=== PATIENT | female | born 1930 | race Two or more races ===

== ENCOUNTER 2017-02-12 14:02 | Inpatient (IN) | payer MEDICARE, MEDICAID ==
[2017-02-12] VITALS (12 sets, daily range): BP systolic 79–117; BP diastolic 33–64
[~2017-02-12] VITALS: Ht 157.5 cm; Wt 77.1 kg
--- NOTE | 2017-02-12 14:20 | Emergency Room Report ---
History of Present Illness General Chief Complaint: Syncope Source: Patient, Medical Record, EMS Present Illness HPI Patient presents by paramedics for report of syncopal episode Patient herself does not recall the episode She reports that she was feeling some pain to the back of the head was feeling lightheaded was found to be hypotensive Patient reports being given water with salt And as it was not helping paramedics were summoned Paramedics report that the patient had a full syncopal episode, slumping in her chair and unresponsive Initial blood pressure being 60/40 At this time patient denies any chest pain or shortness of breath Allergies: Coded Allergies: No Known Allergies (Unverified , 02/12/17) Patient History Past Medical History: see triage record Pertinent Family History: none Last Menstrual Period: na Reviewed Nursing Documentation: PMH: Agreed, PSxH: Agreed Nursing Documentation-PMH Past Medical History: No History, Except For Hx Cardiac Problems: Yes - murmur, syncope, high cholesterol Hx Hypertension: Yes Hx COPD: Yes Hx Gastrointestinal Problems: Yes - cholesectomy History Of Psychiatric Problem: Yes - anxiety, dementia, depression Review of Systems All Other Systems: negative except mentioned in HPI Physical Exam Vital Signs Date Time Temp Pulse Resp B/P Pulse Ox O2 Delivery O2 Flow Rate FiO2 02/12/17 14:02 97.3 64 18 81/44 98 Room Air Sp02 EP Interpretation: reviewed, normal General Appearance: no apparent distress Head: normocephalic, atraumatic Eyes: bilateral eye EOMI, bilateral eye PERRL ENT: hearing grossly normal, TMs + canals normal, uvula midline, dry mucus membranes Neck: full range of motion, supple, no meningismus, no bony tend Respiratory: lungs clear, normal breath sounds, no rhonchi, no respiratory distress, no retraction, no accessory muscle use Cardiovascular #1: normal peripheral pulses, regular rate, rhythm, no gallop, no JVD, no murmur Gastrointestinal: normal bowel sounds, non tender, soft, no mass, no organomegaly, non-distended, no guarding, no hernia, no pulsatile mass, no rebound Genitourinary: no CVA tenderness Musculoskeletal: other - no obvious focal deficit Neurologic: responsive, emergency nurse III-XII nml as tested, motor strength/tone normal, sensory intact Psychiatric: mood/affect normal Skin: other - Dependence-appearing edema in both lower extremities Lymphatic: normal inspection, no adenopathy Medical Decision Making Diagnostic Impression: Primary Impression: Syncope Additional Impression: Hypokalemia ER Course Patient is a fairly complex patient with multiple differential to consideration including but not limited to cardiac cardiopulmonary and vascular emergencies Patient's blood work reveals mild anemia there is also evidence of hypokalemia Patient did report taking increased diuretics Patient further hydrated pressure at this time improved the patient required admission for further care Labs Test 02/12/17 15:30 02/12/17 16:00 White Blood Count 9.0 K/UL (4.8-10.8) Red Blood Count 3.68 M/UL (4.20-5.40) Hemoglobin 10.7 G/DL (12.0-16.0) Hematocrit 31.1 % (37.0-47.0) Mean Corpuscular Volume 85 FL (80-99) Mean Corpuscular Hemoglobin 29.1 PG (27.0-31.0) Mean Corpuscular Hemoglobin Concent 34.5 G/DL (32.0-36.0) Red Cell Distribution Width 12.1 % (11.6-14.8) Platelet Count 143 K/UL (150-450) Mean Platelet Volume 7.1 FL (6.5-10.1) Neutrophils (%) (Auto) 77.5 % (45.0-75.0) Lymphocytes (%) (Auto) 16.1 % (20.0-45.0) Monocytes (%) (Auto) 6.1 % (1.0-10.0) Eosinophils (%) (Auto) 0.1 % (0.0-3.0) Basophils (%) (Auto) 0.2 % (0.0-2.0) Prothrombin Time 10.1 SEC (9.30-11.50) Prothromb Time International Ratio 1.0 (0.9-1.1) Activated Partial Thromboplast Time 26 SEC (23-33) Sodium Level 137 mEQ/L (135-145) Potassium Level 3.0 mEQ/L (3.4-4.9) Chloride Level 96 mEQ/L (98-107) Carbon Dioxide Level 26 mEQ/L (20-30) Anion Gap 15 (5-15) Blood Urea Nitrogen 32 mg/dL (7-23) Creatinine 1.4 mg/dL (0.5-0.9) Estimat Glomerular Filtration Rate mL/min (>60) Glucose Level 122 mg/dL (74-106) Lactic Acid Level 1.40 mmol/L (0.66-2.22) Calcium Level 8.3 mg/dL (8.6-10.2) Total Bilirubin 0.5 mg/dL (0.0-1.2) Aspartate Amino Transf (AST/SGOT) 11 U/L (5-40) Alanine Aminotransferase (ALT/SGPT) 9 U/L (3-33) Alkaline Phosphatase 64 U/L (35-104) Total Creatine Kinase 50 U/L (26-140) Creatine Kinase MB < 1.5 ng/mL (< 3.8) Creatine Kinase MB Relative Index Troponin I < 0.30 ng/mL (<=0.30) Total Protein 6.2 g/dL (6.6-8.7) Albumin 3.6 g/dL (3.5-5.2) Globulin 2.6 g/dL Albumin/Globulin Ratio 1.3 (1.0-2.7) Urine Color Pale yellow Urine Appearance Clear Urine pH 5 (4.5-8.0) Urine Specific [place] 1.005 (1.005-1.035) Urine Protein Negative (NEGATIVE) Urine Glucose (UA) Negative (NEGATIVE) Urine Ketones Negative (NEGATIVE) Urine Occult Blood Negative (NEGATIVE) Urine Nitrite Negative (NEGATIVE) Urine Bilirubin Negative (NEGATIVE) Urine Urobilinogen Normal MG/DL (0.0-1.0) Urine Leukocyte Esterase 1+ (NEGATIVE) Urine RBC 0-2 /HPF (0 - 2) Urine WBC 0-2 /HPF (0 - 2) Urine Squamous Epithelial Cells Occasional /LPF Urine Bacteria Many /HPF (NONE) EKG Diagnostic Results Rate: normal Rhythm: NSR ST Segments: other Rhythm Strip Diag. Results EP Interpretation: yes Rate: 87 Rhythm: NSR, no PVC's, no ectopy Chest X-Ray Diagnostic Results EP Interpretation: Yes Findings: no consolidation, no effusion, no pneumothorax Number of Views: 1 Last Vital Signs Date Time Temp Pulse Resp B/P Pulse Ox O2 Delivery O2 Flow Rate FiO2 02/12/17 14:02 97.3 64 18 81/44 98 Room Air Status: improved Disposition: ADMITTED INPATIENT Condition: Serious BAIRON MEDRANO D.O. Feb 12, 2017 14:20
--- NOTE | 2017-02-12 14:55 | Diagnostic Imaging Report ---
Indication: Chest Pain Comparison: None A single view chest radiograph was obtained. Findings: No definite infiltrate or pulmonary vascular congestion identified. The heart is borderline enlarged. The aorta is mildly enlarged consistent with atherosclerotic vascular disease. The bones are osteopenic. Impression: No acute disease
[2017-02-12 15:53] LABS: BASOPHILS % (AUTO) 0.2 % (0.0-2.0); EOSINOPHILS % (AUTO) 0.1 % (0.0-3.0); LYMPHOCYTES % (AUTO) 16.1 % (20.0-45.0); MEAN CORPUSCULAR HEMOGLOBIN 29.1 PG (27.0-31.0); MEAN CORPUSCULAR HGB CONC 34.5 G/DL (32.0-36.0); MEAN CORPUSCULAR VOLUME 85 FL (80-99); MEAN PLATELET VOLUME 7.1 FL (6.5-10.1); MONOCYTES % (AUTO) 6.1 % (1.0-10.0); NEUTROPHILS % (AUTO) 77.5 % (45.0-75.0); PLATELET COUNT 143 K/UL (150-450); RED BLOOD COUNT 3.68 M/UL (4.20-5.40); RED CELL DISTRIBUTION WIDTH 12.1 % (11.6-14.8)
[2017-02-12 16:07] LABS: PROTHROMBIN TIME 10.1 SEC (9.30-11.50)
[2017-02-12 16:11] LABS: TROPONIN I < 0.30 ng/mL (<=0.30)
[2017-02-12 16:15] LABS: ALANINE AMINOTRANSFERASE 9 U/L (3-33); ALBUMIN/GLOBULIN RATIO 1.3 (1.0-2.7); ANION GAP 15 (5-15); ASPARTATE AMINO TRANSFERASE 11 U/L (5-40); CALCIUM 8.3 mg/dL (8.6-10.2); CARBON DIOXIDE 26 mEQ/L (20-30); CHLORIDE 96 mEQ/L (98-107); CREATININE 1.4 mg/dL (0.5-0.9); HEMOLYSIS 0; SODIUM 137 mEQ/L (135-145); TOTAL PROTEIN 6.2 g/dL (6.6-8.7)
[2017-02-12] MEDS ORDERED: KLONOPIN0.5 MG ORAL (16:15)
[2017-02-12] MEDS ORDERED: Nitroglycerin Subl 0.4mg tab (Bottle Of 25) SL PRN (16:15)
[2017-02-12] MEDS ORDERED: EVISTA60 MG ORAL (16:15)
[2017-02-12] MEDS ORDERED: SINGULAIR10 MG ORAL (16:15)
[2017-02-12] MEDS ORDERED: DuoNeb 0.5-3(2.5)mg/3ml neb HHN PRN (16:15)
[2017-02-12] MEDS ORDERED: NEXIUM40 MG ORAL (16:15)
[2017-02-12] MEDS ORDERED: CYMBALTA60 MG ORAL (16:15)
[2017-02-12] MEDS ORDERED: Morphine Sulfate 2mg/ml Inj IVP PRN (16:15)
[2017-02-12] MEDS ORDERED: LORazepam Inj 2mg/ml 1ml IV PRN (16:15)
[2017-02-12] MEDS ORDERED: SIMVASTATIN40 MG ORAL (16:15)
[2017-02-12] MEDS ORDERED: AMITIZA24 MCG ORAL (16:15)
[2017-02-12] MEDS ORDERED: Miralax 17gm pkt ORAL PRN (16:15)
[2017-02-12] MEDS ORDERED: VITAMIN D1000 UNI1 ORAL (16:15)
[2017-02-12] MEDS ORDERED: LASIX40 MG ORAL (16:15)
[2017-02-12] MEDS ORDERED: CELEBREX200 MG ORAL (16:15)
[2017-02-12] MEDS ORDERED: BENICAR40 MG ORAL (16:15)
[2017-02-12] MEDS ORDERED: PRAMIPEXOLE D0.25 MG ORAL (16:15)
[2017-02-12] MEDS ORDERED: FOLIC ACID1 MG ORAL (16:15)
[2017-02-12] MEDS ORDERED: OMEGA-31000 M1 PO (16:15)
[2017-02-12] MEDS ORDERED: Mylanta II UD 30ml ORAL PRN (16:15)
[2017-02-12] MEDS ORDERED: BYSTOLIC10 MG ORAL (16:15)
[2017-02-12] MEDS ORDERED: ZAROXOLYN2.5 MG ORAL (16:17)
[2017-02-12] MEDS ORDERED: KLOR-CON 88 MEQ ORAL (16:17)
[2017-02-12] MEDS ORDERED: LUMIGAN2.5 ML BOTH EYES (16:18)
[2017-02-12 16:22] LABS: APPEARANCE,URINE CLEAR; KETONES,URINE NEGATIVE (NEGATIVE); LEUKOCYTE ESTERASE ,URINE 1+ (NEGATIVE); NITRITE,URINE NEGATIVE (NEGATIVE); PH,URINE 5 (4.5-8.0); PROTEIN,URINE NEGATIVE (NEGATIVE); UROBILINOGEN,URINE NORMAL MG/DL (0.0-1.0)
[2017-02-12 16:25] LABS: CKMB < 1.5 ng/mL (< 3.8)
[2017-02-12 16:33] LABS: BACTERIA,URINE MANY /HPF; RBC,URINE 0-2 /HPF (0 - 2); SQUAMOUS EPITHELIAL CELL,UR OCCASIONAL /LPF (NONE/OCC); WBC,URINE 0-2 /HPF (0 - 2)
[2017-02-12] MEDS: D5NS 1,000 ML IV SCH (17:29)
[2017-02-12] MEDS: Heparin 5000 units/ml inj SUBQ SCH (21:00)
[2017-02-13] VITALS: BP 100/57
[2017-02-13 04:00] VITALS: BP 94/50
[2017-02-13] MEDS: D5NS 1,000 ML IV SCH ×3 (06:08→17:20)
[2017-02-13 08:00] VITALS: BP 108/61
--- NOTE | 2017-02-13 08:14 | Cardiology Progress Note ---
Assessment/Plan Assessment/Plan [id number] syncope hypotesnion possibel dehydrattion htn hs renal insuf anemia OA likely related to over diuresis and antihypertensive will have non contrast ct of the chest to r/o aortic root is enlargement orthostatic vital echo iv fluid labs ekg this am Objective Last 24 Hour Vital Signs Date Time Temp Pulse Resp B/P Pulse Ox O2 Delivery O2 Flow Rate FiO2 02/13/17 04:00 58 02/13/17 04:00 98.2 67 18 94/50 98 Room Air 02/13/17 00:00 98.2 66 18 100/57 98 Room Air 02/13/17 00:00 68 02/12/17 20:00 97.5 57 18 103/57 98 Room Air 02/12/17 20:00 75 02/12/17 17:38 96.9 64 17 117/64 98 Room Air 64 64 02/12/17 17:11 97.6 67 18 101/45 98 Room Air 65 02/12/17 16:30 67 18 101/45 98 Room Air 02/12/17 16:16 97.6 65 18 100/45 97 Room Air 02/12/17 15:45 64 18 93/44 95 Room Air 02/12/17 15:30 66 16 93/43 95 Room Air 02/12/17 15:15 60 18 89/42 95 Room Air 02/12/17 15:00 57 18 89/35 95 Room Air 02/12/17 14:55 59 16 84/39 95 Room Air 02/12/17 14:45 57 18 81/33 96 Room Air 02/12/17 14:30 57 16 79/33 95 Room Air 02/12/17 14:10 59 16 91/51 97 Room Air 02/12/17 14:02 97.3 64 18 81/44 98 Room Air Intake and Output 02/12/17 02/13/17 19:00 07:00 Intake Total 2375 ml 1140 ml Output Total 300 ml Balance 2075 ml 1140 ml Intake Oral 0 ml 240 ml IV Total 2375 ml 900 ml Output Urine Total 300 ml Laboratory Tests Test 02/12/17 15:30 02/12/17 16:00 White Blood Count 9.0 K/UL (4.8-10.8) Red Blood Count 3.68 M/UL (4.20-5.40) L Hemoglobin 10.7 G/DL (12.0-16.0) L Hematocrit 31.1 % (37.0-47.0) L Mean Corpuscular Volume 85 FL (80-99) Mean Corpuscular Hemoglobin 29.1 PG (27.0-31.0) Mean Corpuscular Hemoglobin Concent 34.5 G/DL (32.0-36.0) Red Cell Distribution Width 12.1 % (11.6-14.8) Platelet Count 143 K/UL (150-450) L Mean Platelet Volume 7.1 FL (6.5-10.1) Neutrophils (%) (Auto) 77.5 % (45.0-75.0) H Lymphocytes (%) (Auto) 16.1 % (20.0-45.0) L Monocytes (%) (Auto) 6.1 % (1.0-10.0) Eosinophils (%) (Auto) 0.1 % (0.0-3.0) Basophils (%) (Auto) 0.2 % (0.0-2.0) Prothrombin Time 10.1 SEC (9.30-11.50) Prothromb Time International Ratio 1.0 (0.9-1.1) Activated Partial Thromboplast Time 26 SEC (23-33) Sodium Level 137 mEQ/L (135-145) Potassium Level 3.0 mEQ/L (3.4-4.9) L Chloride Level 96 mEQ/L (98-107) L Carbon Dioxide Level 26 mEQ/L (20-30) Anion Gap 15 (5-15) Blood Urea Nitrogen 32 mg/dL (7-23) H Creatinine 1.4 mg/dL (0.5-0.9) H Estimat Glomerular Filtration Rate mL/min (>60) Glucose Level 122 mg/dL (74-106) H Lactic Acid Level 1.40 mmol/L (0.66-2.22) Calcium Level 8.3 mg/dL (8.6-10.2) L Total Bilirubin 0.5 mg/dL (0.0-1.2) Aspartate Amino Transf (AST/SGOT) 11 U/L (5-40) Alanine Aminotransferase (ALT/SGPT) 9 U/L (3-33) Alkaline Phosphatase 64 U/L (35-104) Total Creatine Kinase 50 U/L (26-140) Creatine Kinase MB < 1.5 ng/mL (< 3.8) Creatine Kinase MB Relative Index Troponin I < 0.30 ng/mL (<=0.30) Total Protein 6.2 g/dL (6.6-8.7) L Albumin 3.6 g/dL (3.5-5.2) Globulin 2.6 g/dL Albumin/Globulin Ratio 1.3 (1.0-2.7) Urine Color Pale yellow Urine Appearance Clear Urine pH 5 (4.5-8.0) Urine Specific [place] 1.005 (1.005-1.035) Urine Protein Negative (NEGATIVE) Urine Glucose (UA) Negative (NEGATIVE) Urine Ketones Negative (NEGATIVE) Urine Occult Blood Negative (NEGATIVE) Urine Nitrite Negative (NEGATIVE) Urine Bilirubin Negative (NEGATIVE) Urine Urobilinogen Normal MG/DL (0.0-1.0) Urine Leukocyte Esterase 1+ (NEGATIVE) H Urine RBC 0-2 /HPF (0 - 2) Urine WBC 0-2 /HPF (0 - 2) Urine Squamous Epithelial Cells Occasional /LPF Urine Bacteria Many /HPF (NONE) H Microbiology Date/Time Source Procedure Growth Status 02/12/17 16:00 Urine,Clean Catch Urine Culture - Preliminary Resulted ELVIN RIVERS 6, 2017 08:14
[2017-02-13] MEDS: Heparin 5000 units/ml inj SUBQ SCH ×2 (09:22→21:00)
[2017-02-13 10:07] LABS: BASOPHILS % (AUTO) 0.2 % (0.0-2.0); EOSINOPHILS % (AUTO) 0.1 % (0.0-3.0); LYMPHOCYTES % (AUTO) 22.4 % (20.0-45.0); MEAN CORPUSCULAR HEMOGLOBIN 26.8 PG (27.0-31.0); MEAN CORPUSCULAR HGB CONC 31.9 G/DL (32.0-36.0); MEAN CORPUSCULAR VOLUME 84 FL (80-99); MEAN PLATELET VOLUME 7.5 FL (6.5-10.1); MONOCYTES % (AUTO) 6.6 % (1.0-10.0); NEUTROPHILS % (AUTO) 70.6 % (45.0-75.0); PLATELET COUNT 178 K/UL (150-450); RED BLOOD COUNT 4.16 M/UL (4.20-5.40); WHITE BLOOD COUNT 7.3 K/UL (4.8-10.8)
[2017-02-13 10:41] LABS: ALANINE AMINOTRANSFERASE 9 U/L (3-33); ALBUMIN/GLOBULIN RATIO 1.1 (1.0-2.7); ANION GAP 13 (5-15); ASPARTATE AMINO TRANSFERASE 12 U/L (5-40); CALCIUM 8.4 mg/dL (8.6-10.2); CARBON DIOXIDE 28 mEQ/L (20-30); CHLORIDE 102 mEQ/L (98-107); CREATININE 1.1 mg/dL (0.5-0.9); HEMOLYSIS 3; POTASSIUM 3.4 mEQ/L (3.4-4.9); SODIUM 143 mEQ/L (135-145); TOTAL PROTEIN 6.5 g/dL (6.6-8.7)
[2017-02-13 11:18] LABS: TROPONIN I < 0.30 ng/mL (<=0.30)
--- NOTE | 2017-02-13 11:40 | Cardiology Report ---
APPROVED REPORT EXAM: Two-dimensional and M-mode echocardiogram with Doppler and color Doppler. INDICATION LV function Technically difficult study due to poor acoustical windows. Normal left ventricular chamber size, systolic function and wall motion to extent visualized. Left ventricular ejection fraction estimated to be 60 %. Mild to moderate left ventricular hypertrophy. Anterior Echo-free space, may be due to pericardial fat or effusion. All other cardiac chamber sizes are within normal limits. Focal aortic valve sclerosis with adequate cusp excursion. Thickened mitral valve leaflets with normal excursion. Mitral annulus and aortic root calcification. Pulmonic valve not well visualized. Normal tricuspid valve structure. IVC at normal size with physiologic collapse. A color flow and spectral Doppler study was performed and revealed: Mild aortic regurgitation. Mild mitral regurgitation. Mitral inflow indicates normal left ventricular diastolic function. Trace to mild tricuspid regurgitation. Tricuspid systolic velocities suggests peak right ventricular systolic pressure of 30 mmHg.
[2017-02-13 12:00] VITALS: BP 109/56
--- NOTE | 2017-02-13 12:44 | History and Physical ---
History of Present Illness General Date patient seen: Feb 13, 2017 Reason for Hospitalization: Syncope Present Illness HPI 87 year old female with hx of htn, CHF?, peripheral edema, morbid obesity presented by paramedics with CC of syncopal episode She was feeling lightheaded while [facility] and was found to be hypotensive Paramedics report that the patient had a full syncopal episode, slumping in her chair and unresponsive. Initial blood pressure being 60/40 Pt is admitted for extreme low blood pressure. Allergies: Coded Allergies: No Known Allergies (Unverified , 02/12/17) Medication History Scheduled Bimatoprost (Lumigan), 1 DROP BOTH EYES DAILY, (Reported) Celecoxib* (Celebrex*), 200 MG ORAL DAILY, (Reported) Cholecalciferol (Vitamin D3)* (Vitamin D*), 5,000 UNIT ORAL DAILY, (Reported) Clonazepam* (Klonopin*), 0.5 MG ORAL BID, (Reported) Duloxetine Hcl* (Cymbalta*), 60 MG ORAL DAILY, (Reported) Esomeprazole Magnesium (Nexium), 40 MG ORAL DAILY, (Reported) Folic Acid* (Folic Acid*), 1 MG ORAL DAILY, (Reported) Furosemide* (Lasix*), 40 MG ORAL DAILY, (Reported) Lubiprostone (Amitiza*), 24 MCG ORAL EVERY 12 HOURS, (Reported) Metolazone (Metolazone), 2.5 MG ORAL DAILY, (Reported) Montelukast Sodium* (Singulair*), 10 MG ORAL DAILY, (Reported) Nebivolol Hcl (Bystolic*), 10 MG ORAL DAILY, (Reported) Olmesartan Medoxomil (Benicar), 40 MG ORAL DAILY, (Reported) Potassium Chloride (Klor-Con 8), 8 MEQ ORAL DAILY, (Reported) Pramipexole* (Mirapex*), 0.5 MG ORAL BID, (Reported) Raloxifene Hcl* (Evista*), 60 MG ORAL DAILY, (Reported) Simvastatin (Zocor), 40 MG ORAL BEDTIME, (Reported) Miscellaneous Medications [place]-3 Fatty Acids ([place]-3), 1,000 MG PO, (Reported) Patient History Healthcare decision maker N Resuscitation status Full Code Advanced Directive on File Past Medical/Surgical History Past Medical/Surgical History: (1) HTN (hypertension) (2) Obesity (3) Asthma Review of Systems All Other Systems: negative except mentioned in HPI Physical Exam General Appearance: morbidly obese Lines, tubes and drains: peripheral HEENT: normocephalic, atraumatic Neck: non-tender Respiratory/Chest: chest wall non-tender Cardiovascular/Chest: normal peripheral pulses, normal rate Abdomen: normal bowel sounds, non tender Genitourinary/Rectal: normal genital exam Extremities: normal range of motion Skin Exam: normal pigmentation Neurologic: bench inspector II-XII grossly normal Last 24 Hour Vital Signs Date Time Temp Pulse Resp B/P Pulse Ox O2 Delivery O2 Flow Rate FiO2 02/13/17 12:00 96.3 65 18 109/56 94 Room Air 02/13/17 12:00 65 60 68 02/13/17 08:00 97.7 63 19 108/61 95 Room Air 02/13/17 07:51 72 02/13/17 04:00 58 02/13/17 04:00 98.2 67 18 94/50 98 Room Air 02/13/17 00:00 98.2 66 18 100/57 98 Room Air 02/13/17 00:00 68 02/12/17 20:00 97.5 57 18 103/57 98 Room Air 02/12/17 20:00 75 02/12/17 17:38 96.9 64 17 117/64 98 Room Air 64 64 02/12/17 17:11 97.6 67 18 101/45 98 Room Air 65 02/12/17 16:30 67 18 101/45 98 Room Air 02/12/17 16:16 97.6 65 18 100/45 97 Room Air 02/12/17 15:45 64 18 93/44 95 Room Air 02/12/17 15:30 66 16 93/43 95 Room Air 02/12/17 15:15 60 18 89/42 95 Room Air 02/12/17 15:00 57 18 89/35 95 Room Air 02/12/17 14:55 59 16 84/39 95 Room Air 02/12/17 14:45 57 18 81/33 96 Room Air 02/12/17 14:30 57 16 79/33 95 Room Air 02/12/17 14:10 59 16 91/51 97 Room Air 02/12/17 14:02 97.3 64 18 81/44 98 Room Air Intake and Output 02/12/17 02/13/17 19:00 07:00 Intake Total 2375 ml 1140 ml Output Total 300 ml Balance 2075 ml 1140 ml Intake Oral 0 ml 240 ml IV Total 2375 ml 900 ml Output Urine Total 300 ml Laboratory Tests Test 02/12/17 15:30 02/12/17 16:00 02/13/17 09:55 White Blood Count 9.0 K/UL (4.8-10.8) 7.3 K/UL (4.8-10.8) Red Blood Count 3.68 M/UL (4.20-5.40) L 4.16 M/UL (4.20-5.40) L Hemoglobin 10.7 G/DL (12.0-16.0) L 11.1 G/DL (12.0-16.0) L Hematocrit 31.1 % (37.0-47.0) L 35.0 % (37.0-47.0) L Mean Corpuscular Volume 85 FL (80-99) 84 FL (80-99) Mean Corpuscular Hemoglobin 29.1 PG (27.0-31.0) 26.8 PG (27.0-31.0) L Mean Corpuscular Hemoglobin Concent 34.5 G/DL (32.0-36.0) 31.9 G/DL (32.0-36.0) L Red Cell Distribution Width 12.1 % (11.6-14.8) 13.0 % (11.6-14.8) Platelet Count 143 K/UL (150-450) L 178 K/UL (150-450) Mean Platelet Volume 7.1 FL (6.5-10.1) 7.5 FL (6.5-10.1) Neutrophils (%) (Auto) 77.5 % (45.0-75.0) H 70.6 % (45.0-75.0) Lymphocytes (%) (Auto) 16.1 % (20.0-45.0) L 22.4 % (20.0-45.0) Monocytes (%) (Auto) 6.1 % (1.0-10.0) 6.6 % (1.0-10.0) Eosinophils (%) (Auto) 0.1 % (0.0-3.0) 0.1 % (0.0-3.0) Basophils (%) (Auto) 0.2 % (0.0-2.0) 0.2 % (0.0-2.0) Prothrombin Time 10.1 SEC (9.30-11.50) Prothromb Time International Ratio 1.0 (0.9-1.1) Activated Partial Thromboplast Time 26 SEC (23-33) Sodium Level 137 mEQ/L (135-145) 143 mEQ/L (135-145) Potassium Level 3.0 mEQ/L (3.4-4.9) L 3.4 mEQ/L (3.4-4.9) Chloride Level 96 mEQ/L (98-107) L 102 mEQ/L (98-107) Carbon Dioxide Level 26 mEQ/L (20-30) 28 mEQ/L (20-30) Anion Gap 15 (5-15) 13 (5-15) Blood Urea Nitrogen 32 mg/dL (7-23) H 20 mg/dL (7-23) Creatinine 1.4 mg/dL (0.5-0.9) H 1.1 mg/dL (0.5-0.9) H Estimat Glomerular Filtration Rate mL/min (>60) mL/min (>60) Glucose Level 122 mg/dL (74-106) H 129 mg/dL (74-106) H Lactic Acid Level 1.40 mmol/L (0.66-2.22) Calcium Level 8.3 mg/dL (8.6-10.2) L 8.4 mg/dL (8.6-10.2) L Total Bilirubin 0.5 mg/dL (0.0-1.2) 0.4 mg/dL (0.0-1.2) Aspartate Amino Transf (AST/SGOT) 11 U/L (5-40) 12 U/L (5-40) Alanine Aminotransferase (ALT/SGPT) 9 U/L (3-33) 9 U/L (3-33) Alkaline Phosphatase 64 U/L (35-104) 63 U/L (35-104) Total Creatine Kinase 50 U/L (26-140) Creatine Kinase MB < 1.5 ng/mL (< 3.8) Creatine Kinase MB Relative Index Troponin I < 0.30 ng/mL (<=0.30) < 0.30 ng/mL (<=0.30) Total Protein 6.2 g/dL (6.6-8.7) L 6.5 g/dL (6.6-8.7) L Albumin 3.6 g/dL (3.5-5.2) 3.5 g/dL (3.5-5.2) Globulin 2.6 g/dL 3.0 g/dL Albumin/Globulin Ratio 1.3 (1.0-2.7) 1.1 (1.0-2.7) Urine Color Pale yellow Urine Appearance Clear Urine pH 5 (4.5-8.0) Urine Specific [place] 1.005 (1.005-1.035) Urine Protein Negative (NEGATIVE) Urine Glucose (UA) Negative (NEGATIVE) Urine Ketones Negative (NEGATIVE) Urine Occult Blood Negative (NEGATIVE) Urine Nitrite Negative (NEGATIVE) Urine Bilirubin Negative (NEGATIVE) Urine Urobilinogen Normal MG/DL (0.0-1.0) Urine Leukocyte Esterase 1+ (NEGATIVE) H Urine RBC 0-2 /HPF (0 - 2) Urine WBC 0-2 /HPF (0 - 2) Urine Squamous Epithelial Cells Occasional /LPF Urine Bacteria Many /HPF (NONE) H Thyroid Stimulating Hormone (TSH) 3.220 uIU/mL (0.300-4.500) Cortisol Pending Microbiology Date/Time Source Procedure Growth Status 02/12/17 16:00 Urine,Clean Catch Urine Culture - Preliminary Resulted Height (Feet): 5 Height (Inches): 2.00 Weight (Pounds): 170 Medications Current Medications Medications (Trade) Dose Ordered Sig/Shannon Route PRN Reason Start Time Stop Time Status Last Admin Dose Admin Acetaminophen (Tylenol) 650 mg Q4H PRN ORAL fever 02/12/17 16:15 03/14/17 16:14 Al Hydroxide/Mg Hydroxide (Mylanta II) 30 ml Q6H PRN ORAL dyspepsia 02/12/17 16:15 03/14/17 16:14 Albuterol/ Ipratropium (DuoNeb 0.5-3(2.5)mg/3ml) 3 ml Q4H PRN HHN Shortness of Breath 02/12/17 16:15 02/17/17 16:14 Clonidine HCl 0.1 mg 0.1 mg Q4H PRN ORAL For High Blood Pressure 02/12/17 16:15 03/14/17 16:14 Dextrose (Dextrose 50%) STAT PRN IV Hypoglycemia 02/12/17 16:15 03/14/17 16:14 Dextrose/Sodium Chloride (D5ns) 1,000 ml @ 125 mls/hr Q8H IV 02/13/17 09:00 03/15/17 08:59 02/13/17 09:22 Heparin Sodium (Porcine) (Heparin 5000 units/ml) 5,000 units EVERY 12 HOURS SUBQ 02/12/17 21:00 03/14/17 20:59 02/13/17 09:22 Lorazepam (Ativan 2mg/ml 1ml) 0.5 mg Q4H PRN IV For Anxiety 02/12/17 16:15 02/19/17 16:14 Morphine Sulfate (Morphine Sulfate) 1 mg Q4H PRN IVP For Pain 7-10 02/12/17 16:15 02/19/17 16:14 Nitroglycerin (Ntg) 0.4 mg Q5M X 3 DOSES PRN SL Prn Chest Pain 02/12/17 16:15 03/14/17 16:14 Ondansetron HCl (Zofran) 4 mg Q6H PRN IVP Nausea & Vomiting 02/12/17 16:15 03/14/17 16:14 Polyethylene Glycol (Miralax) 17 gm HSPRN PRN ORAL Constipation 02/12/17 16:15 03/14/17 16:14 Temazepam (Restoril) 15 mg HSPRN PRN ORAL Insomnia 02/12/17 16:15 02/19/17 16:14 Assessment/Plan Problem List: (1) Hypovolemic shock ICD Codes: R57.1 - Hypovolemic shock SNOMED: 90112096 (2) ATN (acute tubular necrosis) ICD Codes: N17.0 - Acute kidney failure with tubular necrosis SNOMED: 19457561 (3) History of asthma ICD Codes: Z87.09 - Personal history of other diseases of the respiratory system SNOMED: 148868590 (4) HTN (hypertension) ICD Codes: I10 - Essential (primary) hypertension SNOMED: 46680817 (5) Obesity ICD Codes: E66.9 - Obesity, unspecified SNOMED: 272295412 (6) Hypokalemia ICD Codes: E87.6 - Hypokalemia SNOMED: 66132887 Assessment/Plan IV fluids check echo electrolytes hold diuretics cardiac evaluation LORENZO MEYER Feb 13, 2017 12:44
--- NOTE | 2017-02-13 13:12 | Cardiology Report ---
APPROVED REPORT EKG Measurement Heart [id number] Sinus bradycardia Right bundle branch block Inferior infarct, age undetermined Abnormal ECG
--- NOTE | 2017-02-13 14:02 | Diagnostic Imaging Report ---
APPROVED REPORT CPT Code: 19400 Vascular Symptoms Syncope Doppler Spectral Velocity Analysis RightLeft carotid arteries. ECA - Imaging reveals irregular plaque in the external carotid artery. The Doppler signal indicates the degree of stenosis is minimal (5%) in the external carotid artery. VERTEBRAL - The vertebral artery is patent, without evidence of stenosis or steal. LEFT SIDE: CCA/ECA - Imaging reveals no significant plaque in the common carotid and external carotid arteries. ICA - Imaging reveals irregular plaque in the internal carotid artery. The Doppler signal indicates the degree of stenosis is minimal (5%) in the internal carotid artery. VERTEBRAL - The vertebral artery is patent, without evidence of stenosis or steal.
--- NOTE | 2017-02-13 14:07 | Diagnostic Imaging Report ---
Indication: Chest pain Technique: Continuous helical transaxial imaging of the chest was obtained from the thoracic inlet to the upper abdomen. No intravenous contrast was administered. Coronal 2-D reformats were also obtained. Total Dose length Product (DLP): [address] Dose Index Volume (CTDIvol): 24 mGy Comparison: none Findings: There is a trace amount of pericardial fluid or thickening. Aorta is ectatic and shows mural calcification. Small hiatal hernia is present. A minimal reticular densities are noted at the lung bases with mild cystic changes. Findings likely represent very mild degree of fibrosis. No consolidation identified within the lungs. The visualized part of the upper abdomen is unremarkable. There is kyphosis present. There is narrowing of intervertebral discs and accompanying endplate osteophyte formation. Hypertrophied facet joints also demonstrated. Impression: No acute findings. Minimal basilar lung fibrosis. Trace pericardial effusion versus thickening. Hiatal hernia Atherosclerotic vascular disease. Degenerative changes of the thoracic spine. The CT scanner at [facility] is accredited by the [employer] and the scans are performed using dose optimization techniques as appropriate to a performed exam including Automatic Exposure control.
--- NOTE | 2017-02-13 14:55 | Consultation ---
Consult Note Consult Note asked to eval for renal failure and electrolyte imbalances Patient presents by paramedics for report of syncopal episode Patient herself does not recall the episode She reports that she was feeling some pain to the back of the head was feeling lightheaded was found to be hypotensive Patient reports being given water with salt And as it was not helping paramedics were summoned Paramedics report that the patient had a full syncopal episode, slumping in her chair and unresponsive Initial blood pressure being 60/40 At this time patient denies any chest pain or shortness of breath Last Menstrual Period: na Reviewed Nursing Documentation: PMH: Agreed, PSxH: Agreed Past Medical History: No History, Except For Hx Cardiac Problems: Yes - murmur, syncope, high cholesterol Hx Hypertension: Yes Hx COPD: Yes Hx Gastrointestinal Problems: Yes - cholesectomy History Of Psychiatric Problem: Yes - anxiety, dementia, depression Examined- Data reviewed Assessment/Plan Acute renal failure- -High Cr 1.4 , multifactorial : Celebrex , Lasix , Zaroxylin, low BP HTN Anemia High Cholestrol HypoKalemia Low BP on presentation Asthma Obesity OA Plan: Slow hydrate- Correct electrolytes- Monitor renal parameters- Avoid Nephrotoxics hold celebrex and diuretics Per consultants TRACEY KAPADIA Feb 13, 2017 14:55
[2017-02-13] MEDS ORDERED: BETIMOL5 M2 OP (15:00)
--- NOTE | 2017-02-13 15:00 | Consultation ---
DATE OF CONSULTATION: 02/13/2017 CARDIOLOGY CONSULTATION CONSULTING PHYSICIAN: Matthew Russ M.D. REFERRING PHYSICIAN: Georgi Lugo M.D. REASON FOR REFERRAL: Near syncope. HISTORY OF PRESENT ILLNESS: This is an elderly female, who speaks Samoan and some American as well. The patient was apparently in the adult daycare center. As I understand, talking with the patient, she was doing well at the adult daycare center, but developed the pain in the upper back, neck area and developed a cold sweat. She sat down, was given some fluids and some salt and then paramedics were summoned. Of course, the trip motor operator run sheet is not available to me except the fact the patient indicates she was noted to have low blood pressure to the point that the nursing staff were not able to measure her blood pressure. The trip motor operator however report the patient apparently had syncopal episodes her chair and became unresponsive with initial blood pressure of 60/40 according to the emergency room physician's note. The patient was subsequently brought to the emergency room here at [facility]. Initial blood pressure here 81/44, and the patient received some fluids and was evaluated, admitted to the hospital for further care. This consultation was subsequently requested. The patient herself denies losing consciousness, but as mentioned different story according to the emergency room physician. Does not have any pain or pressure. There is no PND or orthopnea. She uses one pillow at night. Occasionally has dizziness on standing and occasionally has palpitation, but none yesterday. She recalls that she has not been taking her Benicar for the past, reports her blood pressure has been in the 130s. She does not take the Benicar unless the blood pressure is more than 150. Her blood pressure in the past week has been in 130s or so, she does admit to taking Bystolic twice a day. Her chart indicates Bystolic should be once a day. She takes 10 mg of Bystolic in the morning and 10 mg at night. PAST MEDICAL HISTORY: Positive for history of senile dementia back in 2010, bronchitis, depression, hyperlipidemia, Addison's cyst, vitamin D deficiency, systolic murmur, glaucoma, osteoporosis, cholecystectomy, hypertension, vertigo, history of syncope, knee pain, meniscal tear, anxiety, osteopenia, constipation, COPD, tremor. MEDICATIONS: According to the staff notes at the facility include Bystolic 10 mg daily, simvastatin 40 mg at nighttime, pramipexole 0.5 mg twice a week, Cymbalta ER 60 mg daily, Benicar 40 mg, 60 mg daily, Namenda 10 mg nightly, Lasix 40 mg in the morning, folic acid 1 mg daily, Singular 10 mg daily, clonidine, clonazepam 0.5 mg twice a day as needed for anxiety, Nexium 40 mg, vitamin C 5000, omega-3 twice a day, Lumigan eye drops, 2.5 mg on a daily basis, potassium on daily basis, Celebrex 200 mg daily, 24 mcg twice a day, Colace suppository, vitamin B12 500 mcg on a daily basis. ALLERGIES: She states she is not allergic to any medications. SOCIAL HISTORY: She does not smoke. Does not drink. She lives at home. REVIEW OF SYSTEMS: Gastrointestinal: Appears to be negative. Genitourinary: Negative. Pulmonary: She has history of asthma. She occasionally . Constitutional: Denies any fevers, chills or night sweats. Neurologic: She denies. PHYSICAL EXAMINATION: GENERAL: Shows to be elderly obese female, in no respiratory distress. HEENT: Unremarkable. NECK: Supple. No jugular venous distention. No bruits noted. LUNGS: Clear to auscultation and percussion. CARDIAC: S1 is normal. S2 is normal. Regular rate and rhythm. Systolic ejection murmur. No . EXTREMITIES: There is no clubbing, cyanosis, or edema. NEUROLOGICAL: She is awake, alert, responsive, and in no apparent distress. LABORATORY AND DIAGNOSTIC DATA: Laboratory values, white count 9, hemoglobin 10.7, and platelet count of 143,000. Sodium 137, potassium 3, chloride 96, bicarbonate 26, BUN of 32, creatinine 1.4, and a glucose of 222. Lactic acid of 1.4. Liver function tests are normal. Troponin less than 0.3. Coags, INR 1.0 and PTT of 26. Urinalysis is fairly unremarkable, although many bacteria was noted. The imaging has been performed in the emergency room that showed no acute disease on the chest x-ray. Her EKG shows sinus bradycardia at the rate of 58, right bundle-branch conduction defect with some nonspecific T-wave changes being noted on this EKG. Similar to the EKG that was performed by the paramedics. Her telemetry data overnight showed EKG sinus rhythm and sinus bradycardia. No AFB and no pauses, only significant degree noted on any of the EKGs. ASSESSMENT AND PLAN: 1. Syncope with episodes of upper back. 2. Hypotension. 3. History of hypertension. 4. Dementia. 5. History of osteoarthritis. 6. Renal insufficiency. 7. Anemia. 8. Osteopenia. PLAN: Dr. Lugo, this patient was seen in cardiac consultation. The patient has no signs or symptoms of coronary syndrome, no congestive heart failure. She had documented blood pressure according to the emergency room physician by the paramedics 60/48, at least here in the hospital, she has had blood pressure documented in the emergency room in the 80s. Her blood pressure subsequently has improved although in the 103 range. She is on Lasix and she is on metolazone apparently at home according to the records. will be ordered. IV fluids to be continued. Echocardiogram will be performed and consider CT scan of the chest looking at the aorta, although, I would avoid administering IV in light of the fact that she has a history of hypertension and developed this episode of back pain followed by hypotension. The aortic root is dilated. An echocardiogram will be ordered. IV fluids should be administered and orthostatic vitals can be changed. Her Bystolic should be on hold for the time being. It is highly possible that the patient's symptoms are likely related to dehydration from over diuresis, although other etiologies should be entertained. Matthew Russ M.D. DR: Keith JOB#: [id number] CC:
[2017-02-13 16:00] VITALS: BP 97/57
[2017-02-13] MEDS ORDERED: Vitamin D 50,000 units cap ORAL SCH (16:00)
[2017-02-13] MEDS: Timolol 0.5% Op Soln 2.5ml BOTH EYES SCH (17:24)
[2017-02-13 20:00] VITALS: BP 115/60
[2017-02-14] VITALS: BP 143/70
[2017-02-14] MEDS: D5NS 1,000 ML IV SCH ×2 (01:55→09:39)
[2017-02-14 04:00] VITALS: BP 132/72
[2017-02-14 08:06] VITALS: BP 119/63
[2017-02-14 08:40] LABS: BASOPHILS % (AUTO) 0.2 % (0.0-2.0); EOSINOPHILS % (AUTO) 0.1 % (0.0-3.0); LYMPHOCYTES % (AUTO) 18.1 % (20.0-45.0); MEAN CORPUSCULAR HEMOGLOBIN 27.1 PG (27.0-31.0); MEAN CORPUSCULAR HGB CONC 31.7 G/DL (32.0-36.0); MEAN CORPUSCULAR VOLUME 85 FL (80-99); MEAN PLATELET VOLUME 8.6 FL (6.5-10.1); MONOCYTES % (AUTO) 3.1 % (1.0-10.0); NEUTROPHILS % (AUTO) 78.6 % (45.0-75.0); PLATELET COUNT 203 K/UL (150-450); RED CELL DISTRIBUTION WIDTH 12.9 % (11.6-14.8); WHITE BLOOD COUNT 7.4 K/UL (4.8-10.8)
[2017-02-14 08:50] LABS: INR 0.9 (0.9-1.1); PROTHROMBIN TIME 9.9 SEC (9.30-11.50)
[2017-02-14 09:00] LABS: ALANINE AMINOTRANSFERASE 10 U/L (3-33); ALBUMIN/GLOBULIN RATIO 1.4 (1.0-2.7); ANION GAP 14 (5-15); ASPARTATE AMINO TRANSFERASE 13 U/L (5-40); CALCIUM 8.6 mg/dL (8.6-10.2); CARBON DIOXIDE 24 mEQ/L (20-30); CHLORIDE 103 mEQ/L (98-107); CHOLESTEROL 153 mg/dL (< 200); CHOLESTEROL/HDL RATIO 4.1 (3.3-4.4); HEMOLYSIS 5; LDL CHOLESTEROL (CALC.) 75 mg/dL (60-99); MAGNESIUM 2.2 mg/dL (1.7-2.5); PHOSPHORUS 2.1 mg/dL (2.5-4.8); POTASSIUM 3.6 mEQ/L (3.4-4.9); SODIUM 141 mEQ/L (135-145); TOTAL PROTEIN 6.7 g/dL (6.6-8.7)
[2017-02-14 09:02] LABS: FERRITIN 43 ng/mL (13-150)
[2017-02-14 09:23] LABS: CRP QUANT 1.6 mg/dL (< 0.5); URIC ACID 8.6 mg/dL (3.0-7.5)
[2017-02-14] MEDS: Heparin 5000 units/ml inj SUBQ SCH ×2 (09:38→09:46)
[2017-02-14] MEDS: Timolol 0.5% Op Soln 2.5ml BOTH EYES SCH (09:40)
--- NOTE | 2017-02-14 10:31 | General Progress Note ---
Assessment/Plan Status: stable - from renal stand Assessment/Plan status; Acute renal failure- resolved with hydration -High Cr 1.4 , multifactorial : Celebrex , Lasix , Zaroxylin, low BP- NORMALIZED HTN Anemia High Cholestrol HypoKalemia, resolved Low BP on presentation Asthma Obesity OA Plan: Stop hydrate- Correct electrolytes- Monitor renal parameters- Avoid Nephrotoxics hold celebrex and diuretics Per consultants DC planning??? Subjective ROS Limited/Unobtainable: No Constitutional: Reports: other - feels stronger Allergies: Coded Allergies: No Known Allergies (Unverified , 02/12/17) Objective Last 24 Hour Vital Signs Date Time Temp Pulse Resp B/P Pulse Ox O2 Delivery O2 Flow Rate FiO2 02/14/17 08:06 97.4 79 18 119/63 96 Room Air 02/14/17 04:00 73 02/14/17 04:00 97.8 70 20 132/72 96 Room Air 02/14/17 00:00 97.7 74 22 143/70 98 Room Air 02/14/17 00:00 67 02/13/17 20:00 97.9 65 20 115/60 96 Room Air 02/13/17 19:55 65 02/13/17 16:41 63 02/13/17 16:00 97.3 63 18 97/57 94 Room Air 02/13/17 12:00 96.3 65 18 109/56 94 Room Air 02/13/17 12:00 65 60 68 02/13/17 11:52 61 Intake and Output 02/13/17 02/14/17 19:00 07:00 Intake Total 1150 ml 1800 ml Balance 1150 ml 1800 ml Intake Oral 300 ml IV Total 1150 ml 1500 ml # Voids 2 Laboratory Tests 02/14/17 08:30: White Blood Count 7.4, Red Blood Count 4.30, Hemoglobin 11.6L, Hematocrit 36.7L , Mean Corpuscular Volume 85, Mean Corpuscular Hemoglobin 27.1, Mean Corpuscular Hemoglobin Concent 31.7L, Red Cell Distribution Width 12.9, Platelet Count 203, Mean Platelet Volume 8.6, Neutrophils (%) (Auto) 78.6H, Lymphocytes (%) (Auto) 18.1L, Monocytes (%) (Auto) 3.1, Eosinophils (%) (Auto) 0.1, Basophils (%) (Auto) 0.2, Prothrombin Time 9.9, Prothromb Time International Ratio 0.9, Activated Partial Thromboplast Time 26, Sodium Level 141, Potassium Level 3.6, Chloride Level 103, Carbon Dioxide Level 24, Anion Gap 14, Blood Urea Nitrogen 12, Creatinine 1.0H, Estimat Glomerular Filtration Rate , Glucose Level 176H, Uric Acid 8.6H, Calcium Level 8.6, Phosphorus Level 2.1L, Magnesium Level 2.2, Ferritin 43, Total Bilirubin 0.4, Gamma Glutamyl Transpeptidase 17, Aspartate Amino Transf (AST/SGOT) 13, Alanine Aminotransferase (ALT/SGPT) 10, Alkaline Phosphatase 68, Total Creatine Kinase 112, C-Reactive Protein, Quantitative 1.6H, Pro-B-Type Natriuretic Peptide 1453H , Total Protein 6.7, Albumin 4.0, Globulin 2.7, Albumin/Globulin Ratio 1.4, Triglycerides Level 204H, Cholesterol Level 153, LDL Cholesterol 75, HDL Cholesterol 37, Cholesterol/HDL Ratio 4.1, Vitamin B12 Level 226, Folate [ Pending] Height (Feet): 5 Height (Inches): 2.00 Weight (Pounds): 170 General Appearance: no apparent distress, other - ambulating with PT Neck: supple Cardiovascular: normal rate Respiratory/Chest: lungs clear Abdomen: soft TRACEY KAPADIA Feb 14, 2017 10:31
[2017-02-14] MEDS ORDERED: D5NS 1000ml IV ONE (10:34)
[2017-02-14 11:37] VITALS: BP 132/51
--- NOTE | 2017-02-14 11:55 | Pulmonology Progress Note ---
Assessment/Plan Problems: (1) Hypovolemic shock (2) ATN (acute tubular necrosis) (3) History of asthma (4) HTN (hypertension) (5) Obesity (6) Hypokalemia Assessment/Plan improving bendaryl for skin rash dc home electrolytes better today Subjective ROS Limited/Unobtainable: No Interval Events: skin rash last night HEENT: Repors: no symptoms Allergies: Coded Allergies: No Known Allergies (Unverified , 02/12/17) Objective Last 24 Hour Vital Signs Date Time Temp Pulse Resp B/P Pulse Ox O2 Delivery O2 Flow Rate FiO2 02/14/17 11:37 97.0 69 20 132/51 98 Room Air 02/14/17 08:06 97.4 79 18 119/63 96 Room Air 02/14/17 04:00 73 02/14/17 04:00 97.8 70 20 132/72 96 Room Air 02/14/17 00:00 97.7 74 22 143/70 98 Room Air 02/14/17 00:00 67 02/13/17 20:00 97.9 65 20 115/60 96 Room Air 02/13/17 19:55 65 02/13/17 16:41 63 02/13/17 16:00 97.3 63 18 97/57 94 Room Air 02/13/17 12:00 96.3 65 18 109/56 94 Room Air 02/13/17 12:00 65 60 68 Intake and Output 02/13/17 02/14/17 19:00 07:00 Intake Total 1150 ml 1800 ml Balance 1150 ml 1800 ml Intake Oral 300 ml IV Total 1150 ml 1500 ml # Voids 2 General Appearance: WD/WN HEENT: atraumatic Respiratory/Chest: chest wall non-tender, lungs clear Breasts: no masses Cardiovascular: normal peripheral pulses Abdomen: normal bowel sounds, soft, non tender Neurologic/Psychiatric: decorator store II-XII grossly normal Microbiology Date/Time Source Procedure Growth Status 02/12/17 15:30 Blood Blood Culture - Preliminary NO GROWTH AFTER 24 HOURS Resulted 02/12/17 14:50 Blood Blood Culture - Preliminary NO GROWTH AFTER 24 HOURS Resulted 02/12/17 16:50 Nasal Nares MRSA Culture - Final NO METHICILLIN RESISTANT STAPH AUREUS... Complete 02/12/17 16:00 Urine,Clean Catch Urine Culture - Preliminary Gram Negative Bacillus 1 Resulted 02/12/17 16:50 Rectum VRE Culture - Final NO VANCOMYCIN RESISTANT ENTEROCOCCUS ... Complete Laboratory Tests 02/14/17 08:30: White Blood Count 7.4, Red Blood Count 4.30, Hemoglobin 11.6L, Hematocrit 36.7L , Mean Corpuscular Volume 85, Mean Corpuscular Hemoglobin 27.1, Mean Corpuscular Hemoglobin Concent 31.7L, Red Cell Distribution Width 12.9, Platelet Count 203, Mean Platelet Volume 8.6, Neutrophils (%) (Auto) 78.6H, Lymphocytes (%) (Auto) 18.1L, Monocytes (%) (Auto) 3.1, Eosinophils (%) (Auto) 0.1, Basophils (%) (Auto) 0.2, Prothrombin Time 9.9, Prothromb Time International Ratio 0.9, Activated Partial Thromboplast Time 26, Sodium Level 141, Potassium Level 3.6, Chloride Level 103, Carbon Dioxide Level 24, Anion Gap 14, Blood Urea Nitrogen 12, Creatinine 1.0H, Estimat Glomerular Filtration Rate , Glucose Level 176H, Uric Acid 8.6H, Calcium Level 8.6, Phosphorus Level 2.1L, Magnesium Level 2.2, Ferritin 43, Total Bilirubin 0.4, Gamma Glutamyl Transpeptidase 17, Aspartate Amino Transf (AST/SGOT) 13, Alanine Aminotransferase (ALT/SGPT) 10, Alkaline Phosphatase 68, Total Creatine Kinase 112, C-Reactive Protein, Quantitative 1.6H, Pro-B-Type Natriuretic Peptide 1453H , Total Protein 6.7, Albumin 4.0, Globulin 2.7, Albumin/Globulin Ratio 1.4, Triglycerides Level 204H, Cholesterol Level 153, LDL Cholesterol 75, HDL Cholesterol 37, Cholesterol/HDL Ratio 4.1, Vitamin B12 Level 226, Folate [ Pending] Current Medications Medications (Trade) Dose Ordered Sig/Shannon Route PRN Reason Start Time Stop Time Status Last Admin Dose Admin Acetaminophen (Tylenol) 650 mg Q4H PRN ORAL fever 02/12/17 16:15 03/14/17 16:14 Albuterol/ Ipratropium (DuoNeb 0.5-3(2.5)mg/3ml) 3 ml Q4H PRN HHN Shortness of Breath 02/12/17 16:15 02/17/17 16:14 Dextrose (Dextrose 50%) STAT PRN IV Hypoglycemia 02/12/17 16:15 03/14/17 16:14 Diphenhydramine HCl (Benadryl) 25 mg Q4H PRN ORAL Itching 02/14/17 00:00 03/16/17 00:00 02/14/17 11:07 Ergocalciferol (Drisdol) 50,000 intlu QWEEK ORAL 02/13/17 16:00 03/15/17 15:59 02/13/17 15:50 Heparin Sodium (Porcine) (Heparin 5000 units/ml) 5,000 units EVERY 12 HOURS SUBQ 02/12/17 21:00 03/14/17 20:59 02/13/17 09:22 Lorazepam (Ativan 2mg/ml 1ml) 0.5 mg Q4H PRN IV For Anxiety 02/12/17 16:15 02/19/17 16:14 Morphine Sulfate (Morphine Sulfate) 1 mg Q4H PRN IVP For Pain 7-02/12/17 16:15 02/19/17 16:14 Nitroglycerin (Ntg) 0.4 mg Q5M X 3 DOSES PRN SL Prn Chest Pain 02/12/17 16:15 03/14/17 16:14 Non-Formulary Medication (Non-Formulary Med) 1 ea DAILY ORAL 02/14/17 09:00 03/16/17 08:59 UNV Ondansetron HCl (Zofran) 4 mg Q6H PRN IVP Nausea & Vomiting 02/12/17 16:15 03/14/17 16:14 Pantoprazole (Protonix) 40 mg EVERY 12 HOURS ORAL 02/13/17 15:30 03/15/17 15:29 02/14/17 09:36 Phosphorus (Phospha 250 Neutral) 500 mg THREE TIMES A DAY ORAL 02/14/17 13:00 03/16/17 12:59 Polyethylene Glycol (Miralax) 17 gm HSPRN PRN ORAL Constipation 02/12/17 16:15 03/14/17 16:14 Temazepam (Restoril) 15 mg HSPRN PRN ORAL Insomnia 02/12/17 16:15 02/19/17 16:14 Timolol Maleate (Timoptic 0.5% Op Soln) 1 drop TWICE A DAY BOTH EYES 02/13/17 18:00 03/15/17 17:59 6/7/17 09:40 LORENZO MEYER Feb 14, 2017 11:55
--- NOTE | 2017-02-14 12:05 | Neurology Progress Note ---
Interim History Interim History ROS Limited/Unobtainable: No Objective Physical Exam Last Vital Signs Date Time Temp Pulse Resp B/P Pulse Ox O2 Delivery O2 Flow Rate FiO2 02/14/17 11:39 75 69 79 02/14/17 11:37 97.0 20 132/51 98 Room Air Laboratory Tests Test 02/14/17 08:30 White Blood Count 7.4 K/UL (4.8-10.8) Red Blood Count 4.30 M/UL (4.20-5.40) Hemoglobin 11.6 G/DL (12.0-16.0) L Hematocrit 36.7 % (37.0-47.0) L Mean Corpuscular Volume 85 FL (80-99) Mean Corpuscular Hemoglobin 27.1 PG (27.0-31.0) Mean Corpuscular Hemoglobin Concent 31.7 G/DL (32.0-36.0) L Red Cell Distribution Width 12.9 % (11.6-14.8) Platelet Count 203 K/UL (150-450) Mean Platelet Volume 8.6 FL (6.5-10.1) Neutrophils (%) (Auto) 78.6 % (45.0-75.0) H Lymphocytes (%) (Auto) 18.1 % (20.0-45.0) L Monocytes (%) (Auto) 3.1 % (1.0-10.0) Eosinophils (%) (Auto) 0.1 % (0.0-3.0) Basophils (%) (Auto) 0.2 % (0.0-2.0) Prothrombin Time 9.9 SEC (9.30-11.50) Prothromb Time International Ratio 0.9 (0.9-1.1) Activated Partial Thromboplast Time 26 SEC (23-33) Sodium Level 141 mEQ/L (135-145) Potassium Level 3.6 mEQ/L (3.4-4.9) Chloride Level 103 mEQ/L (98-107) Carbon Dioxide Level 24 mEQ/L (20-30) Anion Gap 14 (5-15) Blood Urea Nitrogen 12 mg/dL (7-23) Creatinine 1.0 mg/dL (0.5-0.9) H Estimat Glomerular Filtration Rate mL/min (>60) Glucose Level 176 mg/dL (74-106) H Uric Acid 8.6 mg/dL (3.0-7.5) H Calcium Level 8.6 mg/dL (8.6-10.2) Phosphorus Level 2.1 mg/dL (2.5-4.8) L Magnesium Level 2.2 mg/dL (1.7-2.5) Ferritin 43 ng/mL (13-150) Total Bilirubin 0.4 mg/dL (0.0-1.2) Gamma Glutamyl Transpeptidase 17 U/L (5-36) Aspartate Amino Transf (AST/SGOT) 13 U/L (5-40) Alanine Aminotransferase (ALT/SGPT) 10 U/L (3-33) Alkaline Phosphatase 68 U/L (35-104) Total Creatine Kinase 112 U/L (26-140) C-Reactive Protein, Quantitative 1.6 mg/dL (< 0.5) H Pro-B-Type Natriuretic Peptide 1453 pg/mL (0-450) H Total Protein 6.7 g/dL (6.6-8.7) Albumin 4.0 g/dL (3.5-5.2) Globulin 2.7 g/dL Albumin/Globulin Ratio 1.4 (1.0-2.7) Triglycerides Level 204 mg/dL (< 150) H Cholesterol Level 153 mg/dL (< 200) LDL Cholesterol 75 mg/dL (60-99) HDL Cholesterol 37 mg/dL (> 60) Cholesterol/HDL Ratio 4.1 (3.3-4.4) Vitamin B12 Level 226 pg/mL (211-946) Folate Pending Impression/Recommendations Status: stable - from renal stand Recommendations #[id number] VANDANA PALAFOX Feb 14, 2017 12:05
[2017-02-14] MEDS ORDERED: Phospha 250 Neutral tab ORAL SCH (13:00)
--- NOTE | 2017-02-14 14:22 | Cardiology Progress Note ---
Assessment/Plan Assessment/Plan syncope hypotesnion possibel dehydrattion htn hs renal insuf anemia OA likely related to over diuresis and antihypertensive ct chest no contrast neg echo ok looks good wants to go home u/a neg despite positive cx hold diurtic and k for few days resume only if swelling restarts (i went over these meds with her) hold bp med no benicar for nwo will need to see pmd in 2-3 days to see if bp high enough to resume bp meds Subjective Cardiovascular: Denies: chest pain, lightheadedness, palpitations Respiratory: Denies: shortness of breath Gastrointestinal/Abdominal: Denies: abdominal pain Genitourinary: Denies: burning Objective Last 24 Hour Vital Signs Date Time Temp Pulse Resp B/P Pulse Ox O2 Delivery O2 Flow Rate FiO2 02/14/17 11:39 75 69 79 02/14/17 11:37 97.0 69 20 132/51 98 Room Air 02/14/17 08:06 97.4 79 18 119/63 96 Room Air 02/14/17 07:00 80 02/14/17 04:00 73 02/14/17 04:00 97.8 70 20 132/72 96 Room Air 02/14/17 00:00 97.7 74 22 143/70 98 Room Air 02/14/17 00:00 67 02/13/17 20:00 97.9 65 20 115/60 96 Room Air 02/13/17 19:55 65 02/13/17 16:41 63 02/13/17 16:00 97.3 63 18 97/57 94 Room Air General Appearance: alert, other - walking Neck: supple Cardiovascular: normal rate, regular rhythm Respiratory/Chest: lungs clear, normal breath sounds Abdomen: normal bowel sounds, non tender, soft Extremities: trace edema Intake and Output 02/13/17 02/14/17 19:00 07:00 Intake Total 1150 ml 1800 ml Balance 1150 ml 1800 ml Intake Oral 300 ml IV Total 1150 ml 1500 ml # Voids 2 Laboratory Tests Test 02/14/17 08:30 White Blood Count 7.4 K/UL (4.8-10.8) Red Blood Count 4.30 M/UL (4.20-5.40) Hemoglobin 11.6 G/DL (12.0-16.0) L Hematocrit 36.7 % (37.0-47.0) L Mean Corpuscular Volume 85 FL (80-99) Mean Corpuscular Hemoglobin 27.1 PG (27.0-31.0) Mean Corpuscular Hemoglobin Concent 31.7 G/DL (32.0-36.0) L Red Cell Distribution Width 12.9 % (11.6-14.8) Platelet Count 203 K/UL (150-450) Mean Platelet Volume 8.6 FL (6.5-10.1) Neutrophils (%) (Auto) 78.6 % (45.0-75.0) H Lymphocytes (%) (Auto) 18.1 % (20.0-45.0) L Monocytes (%) (Auto) 3.1 % (1.0-10.0) Eosinophils (%) (Auto) 0.1 % (0.0-3.0) Basophils (%) (Auto) 0.2 % (0.0-2.0) Prothrombin Time 9.9 SEC (9.30-11.50) Prothromb Time International Ratio 0.9 (0.9-1.1) Activated Partial Thromboplast Time 26 SEC (23-33) Sodium Level 141 mEQ/L (135-145) Potassium Level 3.6 mEQ/L (3.4-4.9) Chloride Level 103 mEQ/L (98-107) Carbon Dioxide Level 24 mEQ/L (20-30) Anion Gap 14 (5-15) Blood Urea Nitrogen 12 mg/dL (7-23) Creatinine 1.0 mg/dL (0.5-0.9) H Estimat Glomerular Filtration Rate mL/min (>60) Glucose Level 176 mg/dL (74-106) H Uric Acid 8.6 mg/dL (3.0-7.5) H Calcium Level 8.6 mg/dL (8.6-10.2) Phosphorus Level 2.1 mg/dL (2.5-4.8) L Magnesium Level 2.2 mg/dL (1.7-2.5) Ferritin 43 ng/mL (13-150) Total Bilirubin 0.4 mg/dL (0.0-1.2) Gamma Glutamyl Transpeptidase 17 U/L (5-36) Aspartate Amino Transf (AST/SGOT) 13 U/L (5-40) Alanine Aminotransferase (ALT/SGPT) 10 U/L (3-33) Alkaline Phosphatase 68 U/L (35-104) Total Creatine Kinase 112 U/L (26-140) C-Reactive Protein, Quantitative 1.6 mg/dL (< 0.5) H Pro-B-Type Natriuretic Peptide 1453 pg/mL (0-450) H Total Protein 6.7 g/dL (6.6-8.7) Albumin 4.0 g/dL (3.5-5.2) Globulin 2.7 g/dL Albumin/Globulin Ratio 1.4 (1.0-2.7) Triglycerides Level 204 mg/dL (< 150) H Cholesterol Level 153 mg/dL (< 200) LDL Cholesterol 75 mg/dL (60-99) HDL Cholesterol 37 mg/dL (> 60) Cholesterol/HDL Ratio 4.1 (3.3-4.4) Vitamin B12 Level 226 pg/mL (211-946) Folate Pending Microbiology Date/Time Source Procedure Growth Status 02/12/17 15:30 Blood Blood Culture - Preliminary NO GROWTH AFTER 24 HOURS Resulted 02/12/17 14:50 Blood Blood Culture - Preliminary NO GROWTH AFTER 24 HOURS Resulted 02/12/17 16:50 Nasal Nares MRSA Culture - Final NO METHICILLIN RESISTANT STAPH AUREUS... Complete 02/12/17 16:00 Urine,Clean Catch Urine Culture - Preliminary Gram Negative Bacillus 1 Resulted 02/12/17 16:50 Rectum VRE Culture - Final NO VANCOMYCIN RESISTANT ENTEROCOCCUS ... Complete ELVIN RIVERS Feb 14, 2017 14:22
--- NOTE | 2017-02-14 19:30 | Consultation ---
DATE OF CONSULTATION: 02/13/2017 NEUROLOGICAL CONSULTATION REQUESTING PHYSICIAN: Georgi Lugo M.D. HISTORY OF PRESENT ILLNESS: The patient is an 87-year-old female, seen in neurological consultation to evaluate the episodes of transient loss of consciousness. The patient informed me that she was at daycare unit sitting during lunchtime when she started to feel not well, that she is covered with a cold sweat, pain in her upper back and neck. She took her walker and went to see a nurse on the premises, who found that she might have low blood pressure, gave her some salt and tea, which made it slightly better, but symptoms remain unchanged as far as generalized weakness and lightheadedness and paramedics were called to the scene. They described her sitting in a chair, in slumped and being unresponsive. Her blood pressure 160/40. On arrival to emergency room, the patient had blood pressure 81/44 and temperature 97.3 degrees. Her initial laboratory studies included mild anemia, hemoglobin 10.7 and hematocrit 31.1. Normal coagulation panel. Chemistry panel with potassium 3.0, BUN of 32, creatinine 1.4, and blood sugar 122. Total protein of 6.2. Normal TSH. Lipid panel except triglycerides of 204. Low B12 of 226. Following admission till present, the patient felt some overall improvement. PAST MEDICAL HISTORY: The patient has a history of depression, hyperlipidemia, chronic bronchitis, history of vitamin D deficiency, glaucoma, hypertension, episodes of syncope in the past, anxiety and COPD. MEDICATIONS: Treatment prior to admission included Bystolic, Cymbalta, Namenda, Lasix, folic acid, Singulair, clonazepam, Nexium, Celebrex, and vitamin B12 daily supplements. ALLERGIES: None reported. SOCIAL HISTORY: The patient is a . She lives alone, but has a caregiver. REVIEW OF SYSTEMS: The patient complains of having weight gain for 20 pounds in the last three months. 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 She has had her family physician, Dr. LASHAWN Newman and her cleaning validation consultant Dr. Shaikh. Currently, no chest pain. No palpitations. No respiratory problems. Denies abdominal pain or discomfort. No urine or bowel incontinence. PHYSICAL EXAMINATION: GENERAL: The patient is well-developed, moderately obese female, not in acute distress. VITAL SIGNS: Blood pressure 138/86 and respirations 14. HEENT: Head, normocephalic. No evidence of trauma. Eyes, ears, and throat are clear. NECK: Supple. No meningeal signs. MUSCULOSKELETAL: Unremarkable. Post surgical scars both knees noted. Peripheral pulses 1+. MENTAL STATUS: She is full alert and oriented x3 with no evidence of aphasia or apraxia. Cognitive function normal for age. CRANIAL NERVE II: Pupils, both responding to light and accommodation. Extraocular movement intact. No nystagmus. CRANIAL NERVE V: Normal corneal responses. CRANIAL NERVE VII: No facial asymmetry. CRANIAL NERVE VIII: Normal hearing. CRANIAL NERVE IX THROUGH XII: Tongue is in midline. Symmetric palate elevation. MOTOR EXAMINATION: Normal muscle tone and strength 5/5 in all extremities. No involuntary movement. Deep reflexes 1+ bilaterally symmetric. Plantar response is flexor. SENSORY EXAMINATION: Normal to pinprick light touch. Gait is slow somewhat wobbly on turns. IMPRESSION: 1. History of a syncopal episode, probably vasovagal, rule out dehydration. 2. Hypertensive episode. 3. Degenerative joint disease. 4. Chronic renal insufficiency. 5. Anemia. RECOMMENDATION: The patient is with polypharmacy and no clear evidence of dementia and for this reason, some medication could be put on hold such as Namenda and Aricept. The patient has evidence of low therapeutic level of B12, this will need a further supplements. The patient encouraged p.o. hydration and weight loss conditioning exercises. The patient is to continue with aspirin and statins. Thank you for allowing me to see this interesting patient in neurological consultation. Fabian Aaron M.D. DR: KAMILLE JOB#: [id number] CC:
--- NOTE | 2017-02-15 12:43 | Discharge Summary ---
Discharge Summary Hospital Course Date of Admission Feb 12, 2017 at 15:00 Date of Discharge Feb 14, 2017 at 16:55 Admitting Diagnosis SYNCOPE HPI Nate Flores is a 87 year old female who was admitted on Feb 12, 2017 at 15 :00 for Syncope Hospital Course [id number] Discharge Discharge Disposition Patient was discharged to Home (01) Discharge Diagnoses: Heaven Gomez NP Feb 15, 2017 12:43
--- NOTE | 2017-02-16 04:00 | Discharge Summary 2 SIG ---
DATE OF ADMISSION: 02/12/2017 DATE OF DISCHARGE: 02/14/2017 CONSULTANTS: 1. Fabian Aaron M.D. 2. Matthew Russ M.D. 3. Julien Cruz M.D. BRIEF HOSPITAL COURSE: The patient is an 87-year-old female with history of hypertension, CHF, peripheral edema, and morbid obesity, presented to the hospital by paramedics for a syncopal episode. The patient was feeling lightheaded while at [facility] and was found to be hypotensive. Per net lead developer report, the patient had a full syncopal episode. The patient was found slumped over the chair and unresponsive. Initial blood pressure was 60/40. On evaluation at ED, blood work showed anemia and hypokalemia. She was given IV resuscitation and the patient was admitted for further care. Chest x-ray showed no consolidation, no effusion, no pneumothorax. EKG was in normal sinus rhythm. She was seen by Dr. Russ. Troponin was less than 0.3. EKG and telemetry data showed sinus bradycardia. Echocardiogram done showed left ventricular ejection fraction 60% with normal left ventricular size, function, and wall motion. She was seen by Dr. Aaron. Syncopal episode secondary to vasovagal and possible dehydration. She was continued with aspirin and statin. CT of the chest done was negative for acute findings. Urinalysis was negative, despite urine culture showing Klebsiella. Diuretics were placed on hold and advised to resume only if swelling restart. Advised no Benicar for now and need to see PMD in two to three days for possible resumption of blood pressure medications. She was eventually discharged home. FINAL DIAGNOSES: 1. Syncope possibly vasovagal and from dehydration. 2. Hypotension. 3. Anemia. 4. Acute tubular necrosis. 5. Hypovolemic shock. 6. Obesity. 7. Hypokalemia 8. Acute renal failure, resolved with hydration. 9. Osteoarthritis. 10. Hypercholesterolemia. Georgi Lugo M.D. I have been assigned to dictate discharge summary on this account and I was not involved in the patient's management. Heaven Gomez N.P. DR: Parmjit JOB#: [id number] CC: WILLIAN
== END 2017-02-14 16:55 | disposition home or self-care (01) | DRG 640 ==
LOC: EDBD 14:02 → EMR 14:40 → 2E 15:00 → EDBEDREQ 16:22
DX: E86.0 Dehydration (principal); R57.1 Hypovolemic shock; N17.0 Acute kidney failure with tubular necrosis; I95.9 Hypotension, unspecified; I50.9 Heart failure, unspecified; J44.9 Chronic obstructive pulmonary disease, unspecified; D64.9 Anemia, unspecified; Z87.09 Personal history of other diseases of the respiratory system; I10 Essential (primary) hypertension; E66.9 Obesity, unspecified; E87.6 Hypokalemia; M19.90 Unspecified osteoarthritis, unspecified site; E78.00 Pure hypercholesterolemia, unspecified; R55 Syncope and collapse; F41.9 Anxiety disorder, unspecified; H40.9 Unspecified glaucoma; Z96.659 Presence of unspecified artificial knee joint; M81.0 Age-related osteoporosis without current pathological fracture; F32.9 Major depressive disorder, single episode, unspecified
CPT/HCPCS: 36415; 71010; 71250; 80053; 80061; 81003; 82533; 82550; 82553; 82607; 82728; 82746; 82977; 83605; 83735; 83880; 84100; 84443; 84484; 84550; 85025; 85610; 85730; 86140; 87040; 87081; 87086; 87181; 93005; 93306; 93880; C9399; J8499